=== PATIENT | female | born 1985 | race African-American/Black ===

== ENCOUNTER 2019-04-20 19:27 | Emergency (ER) | payer OTHER, SELFPAY ==
[2019-04-20 19:33] VITALS: BP 136/84; PULSE 108; RESP 20; TEMP 36.6; BMI 25.7
--- NOTE | 2019-04-20 19:39 | DI.RAD.S_ITS ---
PROCEDURE: XR TOE RT MIN 2V INDICATIONS: jammed toe in pedicure tub TECHNIQUE: 3 views of the right first and second toe(s) acquired. COMPARISON: None. FINDINGS: Bones: No fractures or dislocations. No suspicious bony lesions. Soft tissues: No suspicious soft tissue densities. IMPRESSION: No acute bony abnormality of the right first and second toes. Dictated by: Dionisio Sneed M.D. on 04/20/2019 at 21:15 Approved by: Dionisio Sneed M.D. on 04/20/2019 at 21:16
--- NOTE | 2019-04-20 20:29 | ED.LOWEXIN ---
HPI - Extremity Injury (Lower) General Chief Complaint: Extremity Injury, Lower Stated Complaint: rt middle toe pain Time Seen by Provider: 04/20/19 20:29 Source: patient Mode of arrival: Ambulatory Limitations: no limitations History of Present Illness HPI Narrative: Patient is a 33-year-old female who presents with right 2nd toe pain. She was getting a headache here she went to push back further into the chair when her foot slipped. It does hurt when she walks or touches the other toes. complaint: foot injury Severity: mild Relieving factors: nothing Exacerbating factors: nothing Related Data Allergies Allergy/AdvReac Type Severity Reaction Status Date / Time No Known Drug Allergies Allergy Verified 04/20/19 19:38 Review of Systems Review of Systems Narrative: GENERAL: Denies chills,fever HEENT: Denies throat pain RESPIRATORY: Denies dyspnea, cough, wheezing CARDIOVASCULAR: Denies chest pain, palpitations GASTROINTESTINAL: Denies nausea, vomiting MUSCULOSKELETAL: Right 2nd toe pain SKIN: No rash, no laceration, no pruritus NEUROLOGIC: Denies weakness, dizziness, headache, numbness 8 point review of systems is negative except for those stated above and HPI Patient History Medical History Patient denies medical problems (Acute) Social History Smoking Status: Never smoker Social History Smoking Status: Never smoker alcohol intake frequency: a few times a month Substance Use Type: does not use Exam Initial Vital Signs Initial Vital Signs: Vital Signs Temperature 97.8 F 04/20/19 19:33 Pulse Rate 108 H 04/20/19 19:33 Respiratory Rate 20 04/20/19 19:33 Blood Pressure 136/84 04/20/19 19:33 GENERAL: Well-appearing, well-nourished and in no acute distress. CARDIOVASCULAR: peripheral pulses in tact, cap refill <2 sec RESPIRATORY: No respiratory distress, speaks in full sentences without difficulty EXTREMITIES: Normal range of motion, no clubbing or edema. Neurovascularly intact -right 2nd toe no deformity no erythema painful to distal pedal pulse intact NEUROLOGICAL: Cranial nerves II through XII grossly intact. Normal gait and speech. SKIN: Warm, dry, no petechiae, no rashes or lesions. Course Orders Ordered: ED Orders 04/20/19 19:39 XR toe RT min 2V Stat Vital Signs Vital signs: Vital Signs - 8 hr 04/20/19 19:33 04/20/19 20:59 Temperature 97.8 F Pulse Rate 108 H 88 Respiratory Rate 20 16 Blood Pressure 136/84 131/79 Pulse Oximetry 99 MDM - Extremity Injury (Lower) Imaging Data Right toe x-ray: Attestation: I personally reviewed and interpreted this imaging study as follows: My impression: No fracture Radiologist's impression: PROCEDURE: XR TOE RT MIN 2V INDICATIONS: jammed toe in pedicure tub TECHNIQUE: 3 views of the right first and second toe(s) acquired. COMPARISON: None. FINDINGS: Bones: No fractures or dislocations. No suspicious bony lesions. Soft tissues: No suspicious soft tissue densities. IMPRESSION: No acute bony abnormality of the right first and second toes. Dictated by: Dionisio Sneed M.D. on 04/20/2019 at 21:15 Discharge Plan Departure Patient Disposition: Home Clinical Impression: Strain of second toe, right Qualifiers: Encounter type: initial encounter Qualified Code(s): S96.911A - Strain of unspecified muscle and tendon at ankle and foot level, right foot, initial encounter Discharge Date/Time: 04/20/19 20:59 Instructions: DI for Toe Sprain Activity Restrictions/Additional Instructions: *You have been diagnosed with right toe sprain *What to do: Wear supportive shoes, ice, ibuprofen *Continue to take medications as directed Ibuprofen 800 mg every 8 hours if needed for pain *Follow up with your primary care provider in 2-3 days *Return to ER if you should have increasing pain inability to walk or any new, worsening or concerning symptoms
[2019-04-20 20:59] VITALS: BP 131/79; PULSE 88; RESP 16; O2SAT 99
== END 2019-04-20 20:59 | disposition home or self-care (01) ==
PROVIDERS: Emergency Provider Emergency Medicine
DX: S96.911A Strain of unspecified muscle and tendon at ankle and foot level, right foot, initial encounter (principal); W22.8XXA Striking against or struck by other objects, initial encounter
CPT/HCPCS: 73660; 99282; 99283